=== PATIENT | female | born 1935 | race Caucasian/White ===

== ENCOUNTER → 2017-06-12 | Outpatient (CLI) | payer OTHER, MEDICARE | LOC: BHFA 14:00 | PROVIDERS: ATTEND Internal Medicine Cardiovascular Disease | DX: I35.9 Nonrheumatic aortic valve disorder, unspecified (principal) ==

== ENCOUNTER → 2018-02-20 | Outpatient (CLI) | payer OTHER, MEDICARE | LOC: BHFA 13:15 | PROVIDERS: ATTEND Internal Medicine Cardiovascular Disease | DX: I35.9 Nonrheumatic aortic valve disorder, unspecified (principal) ==

== ENCOUNTER → 2018-06-04 | Outpatient (CLI) | payer OTHER, MEDICARE | LOC: FIMAGING 15:27 | PROVIDERS: ATTEND Ophthalmology Retina Specialist | DX: H53.122 Transient visual loss, left eye (principal); G93.89 Other specified disorders of brain ==

== ENCOUNTER 2018-06-30 12:17 | Emergency (ER) | payer OTHER, MEDICARE ==
[2018-06-30] MEDS ORDERED: OXYMETAZOLINE 30 ML NASAL SPRAY ONE (12:45)
[2018-06-30] MEDS ORDERED: SILVER NITRATE APPLICATOR 1 APPL TP ONE (12:46)
[2018-06-30] MEDS ORDERED: COCAINE HCL 4% 4 ML BTL TP ONE (13:48)
--- NOTE | 2018-06-30 13:58 | EDPHY ---
H & P Stated Complaint: epistaxis today on blood thinners Time Seen by Provider: 06/30/18 13:31 HPI/ROS: CHIEF COMPLAINT: Epistaxis, anticoagulated HISTORY OF PRESENT ILLNESS: The patient presents the ED with complaints of epistaxis that began earlier today. She is chronically anticoagulated on warfarin. She had her INR checked several days ago and it was 2.1. The patient is also on chronic oxygen. The patient denies any lightheadedness, presyncope, chest pain or dyspnea. Patient denies history of nasal trauma. She denies additional acute complaints. REVIEW OF SYSTEMS: A comprehensive 10 point review of systems is otherwise negative aside from elements mentioned in the history of present illness. Source: Patient Exam Limitations: No limitations - Personal History Current Tetanus Diphtheria and Acellular Pertussis (TDAP): Yes Tetanus Vaccine Date: < 10 years - Medical/Surgical History Hx Asthma: No Hx Chronic Respiratory Disease: Yes Hx Diabetes: No Hx Cardiac Disease: Yes Hx Renal Disease: No Hx Cirrhosis: No Hx Alcoholism: No Hx HIV/AIDS: No Hx Splenectomy or Spleen Trauma: No Other PMH: 3CHF, CABG-aortic valve replacement, afib, HTN, pulmonary HTN, appy, kalli, hypothyroid,aflutter, ablation, angiogram,CHF,Chronic home o2 2L, chronic resp failure. morbid obesity - Social History Smoking Status: Never smoked - Physical Exam Exam: General Appearance: Obese female, no acute distress Eyes: Pupils equal and round no pallor or injection ENT, Mouth: Active bleeding from the left anterior nasal septum Respiratory: There are no retractions, lungs are clear to auscultation Cardiovascular: Regular rate and rhythm Gastrointestinal: Abdomen is soft and nontender, no masses, bowel sounds normal Neurological: 5/5 strength all 4 extremities Skin: Warm and dry, no rashes Musculoskeletal: Neck is supple nontender Extremities: symmetrical, full range of motion Constitutional: Initial Vital Signs Temperature (C) 36.7 C 06/30/18 12:27 Heart Rate 118 H 06/30/18 12:27 Respiratory Rate 19 06/30/18 12:27 Blood Pressure 162/104 H 06/30/18 12:27 O2 Sat (%) 92 06/30/18 12:27 O2 Delivery Mode Nasal Cannula O2 (L/minute) 5 Allergies/Adverse Reactions: Penicillins Allergy (Severe, Verified 06/30/18 12:25) Anaphylaxis Home Medications: Medication Instructions Recorded Thyroid,Pork [[place] Thyroid] 90 mg PO DAILY06 07/31/15 Aspirin EC [Aspirin EC 81 mg (*)] 81 mg PO HS 01/12/16 Cholecalciferol Vit D3 [Vitamin D3 4,000 units PO DAILY 03/16/16 (*)] Herbals/Supplements -Info Only 1 ea PO DAILY 03/16/16 Spironolactone [Aldactone 25 MG 25 mg PO DAILY #0 tab 03/24/16 (*)] Warfarin Sodium [Coumadin 2.5MG 2.5 mg PO DAILY16 #0 tab 03/24/16 (*)] Acetaminophen [Tylenol 325mg (*)] 650 mg PO Q4 PRN #0 tab 06/03/16 Amiodarone HCl [[place] (*)] 200 mg PO DAILY #0 tab 06/03/16 Carvedilol [Coreg (*)] 1.5625 mg PO BIDMEAL #0 tab 06/03/16 Ciprofloxacin [Cipro] 250 mg PO BID@1000,2000 #0 tab 06/03/16 Digoxin [Lanoxin 125 mcg (RX)] 125 mcg PO DAILY10 #0 tab 06/03/16 Famotidine [Pepcid 20 MG (*)] 10 mg PO BID #0 tab 06/03/16 Ferrous Sulfate [Ferrous Sulf 325 325 mg PO BID #0 tab 06/03/16 MG (*)] Nitroglycerin [Nitrostat 0.4 mg 0.4 mg SL PRN PRN #0 btl 06/03/16 (*)] Nystatin Powder [Mycostatin Powder] 1 ozzy TP TID #0 powder 06/03/16 Polyethylene Glycol 3350 [Miralax 17 gm PO DAILY PRN #0 pkt 06/03/16 17 gm (*)] Sennosides/Docusate Sodium 1 - 2 tab PO BID #0 tab 06/03/16 [Senokot-S] Torsemide [Demadex] 40 mg PO DAILY10 #0 tab 06/03/16 Medical Decision Making Procedures: Procedure: Epistaxis control. Indication: nosebleed not controlled by direct pressure. Risks, benefits, alternatives discussed with patient and consent obtained. The left nares was anesthetized with topical cocaine. The anterior epistaxis was identified. The patient was treated with silver nitrate cautery. Following the procedure the patient was re-examined and the bleeding was well controlled. The patient tolerated the procedure well. The procedure was performed by myself. ED Course/Re-evaluation: The patient presents the ED with bleeding from her left anterior septum. I was able to successfully cauterize this in the emergency department without evidence of recurrent rebleeding. The patient will be discharged from the emergency department with customary aftercare instructions. Patient did have an INR checked perform several days ago which demonstrated a therapeutic level. Differential Diagnosis: Differential diagnosis considered includes anterior epistaxis, posterior epistaxis Departure - Departure Disposition: Home, Routine, Self-Care Clinical Impression: Acute anterior epistaxis, Afib Condition: Good Instructions: Nosebleed (ED) Additional Instructions: 1. Please return to the emergency department for any bleeding not resolved with direct pressure. You can use 4 sprays of the Afrin into your nose if you have recurrent bleeding. Please be sure to blow all clots from her nose in the event of a recurrent bleed before using Afrin and applying pressure. 2. Please follow up with your primary care provider as needed. 3. You have been given the number of our on-call ENT physician, Dr. Celestino Field, if you continue to have mild intermittent bleeding. Referrals: Landon Ann PA [Primary Care Provider] - As per Instructions Celestino Field MD [Medical Doctor] - As per Instructions
[2018-06-30 14:51] VITALS: BP 155/79
== END 2018-06-30 14:51 | disposition home or self-care (01) ==
PROC: 095KXZZ Destruction of Nasal Mucosa and Soft Tissue, External Approach (ICD-10-PCS; principal; 2018-06-30)
DX: R04.0 Epistaxis (principal); I48.91 Unspecified atrial fibrillation; Z79.01 Long term (current) use of anticoagulants; Z99.81 Dependence on supplemental oxygen

== ENCOUNTER 2018-06-30 17:11 | Observation (INO) | payer OTHER, MEDICARE ==
--- NOTE | 2018-06-30 17:42 | EDPHY ---
H & P Stated Complaint: nosebleed, here earlier, not stopping Time Seen by Provider: 06/30/18 17:19 HPI/ROS: CHIEF COMPLAINT: Continued epistaxis HISTORY OF PRESENT ILLNESS: 82-year-old female history of warfarin anticoagulation secondary to history of atrial fibrillation, seen the ER earlier today for left-sided epistaxis with chemical cauterization at that time returns to the ER complaining of breakthrough bleeding. Last INR was 2.1 several days ago. She is also on chronic nasal cannula oxygen. Denies nasal trauma. Denies dizziness. Denies headache. Denies nausea or vomiting. PCP: ERIK Ann REVIEW OF SYSTEMS: A ten point review of systems was performed and is negative with the exception of the items mentioned in the HPI PAST MEDICAL & SURGICAL HISTORY: chronic Coumadin anticoagulation. CHF. CABG. Atrial fibrillation. Chronic oxygen-dependent via nasal cannula SOCIAL HISTORY:Nonsmoker PHYSICAL EXAM (Prior to examination, patient consented to physical exam, hands were washed and my usual and customary physical exam procedures followed) 1) GENERAL: Well-developed, well-nourished, alert and oriented. Appears to be in no acute distress. 2) HEAD: Normocephalic, atraumatic 3) HEENT: Pupils equal, round, reactive to light bilaterally. Sclera anicteric. Nasopharynx: Left nostril area of chemical cauterization noted with l breakthrough bleeding noted 4) NECK: Full range of motion, no meningeal signs. 5) LUNGS: Clear auscultation bilaterally, no wheezes, no rhonchi, no retractions. 6) HEART: Regular rate and rhythm, no murmur, no heave, no gallop. 7) ABDOMEN: No guarding, no rebound, no focal tenderness, 8) MUSCULOSKELETAL: No peripheral edema or discoloration. 9) BACK: No visual or palpable abnormality. 10) SKIN: No rash, no petechiae. 11) Psychiatric: Patient is oriented X 3, there is no agitation. DIFFERENTIAL DIAGNOSIS: In no particular order including but not limited to anterior epistaxis, posterior epistaxis,, supratherapeutic INR - Personal History Tetanus Vaccine Date: < 10 years - Medical/Surgical History Hx Asthma: No Hx Chronic Respiratory Disease: Yes Hx Diabetes: No Hx Cardiac Disease: Yes Hx Renal Disease: No Hx Cirrhosis: No Hx Alcoholism: No Hx HIV/AIDS: No Hx Splenectomy or Spleen Trauma: No Other PMH: 3CHF, CABG-aortic valve replacement, afib, HTN, pulmonary HTN, appy, kalli, hypothyroid,aflutter, ablation, angiogram,CHF,Chronic home o2, chronic resp failure. morbid obesity - Social History Smoking Status: Never smoked Constitutional: Initial Vital Signs Temperature (C) 36.6 C 06/30/18 17:12 Heart Rate 108 H 06/30/18 17:12 Respiratory Rate 18 06/30/18 17:12 Blood Pressure 124/95 H 06/30/18 17:12 O2 Sat (%) 91 L 06/30/18 17:12 O2 Delivery Mode Nasal Cannula O2 (L/minute) 4.5 Allergies/Adverse Reactions: Penicillins Allergy (Severe, Verified 06/30/18 17:11) Anaphylaxis ciprofloxacin Allergy (Verified 06/30/18 18:25) Unknown doxycycline Allergy (Verified 06/30/18 18:25) Unknown Quinolones Allergy (Verified 06/30/18 18:25) Unknown Home Medications: Medication Instructions Recorded Aspirin [Aspirin 81mg (*)] 81 mg PO HS 06/30/18 Carvedilol [Coreg (*)] 3.125 mg PO BIDMEAL 06/30/18 Cholecalciferol Vit D3 [Vitamin D3 5,000 units PO DAILY 06/30/18 (*)] Digoxin [Digitek] 125 mcg PO DAILY 06/30/18 Herbals/Supplements -Info Only 1 ea PO DAILY 06/30/18 Potassium Cl [Klor-Con 20 meq (*)] 20 meq PO 06/30/18 Spironolactone [Aldactone 25 MG 25 mg PO DAILY 06/30/18 (*)] Thyroid,Pork [[place] Thyroid] 105 mg PO DAILY 06/30/18 Torsemide [Demadex] 20 mg PO DAILY 06/30/18 Warfarin Sodium [Coumadin 2.5MG 2.5 mg PO MOTUWETHFRSA@06/30/18 (*)] Warfarin Sodium [Coumadin 2.5MG 3.75 mg PO RIVERA@16 06/30/18 (*)] Medical Decision Making Procedures: Procedure: Epistaxis control. Indication: nosebleed not controlled by direct pressure. Risks, benefits, alternatives discussed with patient and consent obtained. The left nares was packed with rapid rhino packing Following the procedure the patient was re-examined and the bleeding was well controlled. The patient tolerated the procedure well. The procedure was performed by myself. ED Course/Re-evaluation: 5:45 p.m.: Nasal packing placed at this time. Patient expresses her concerned about being discharged home as she lives by herself, unsure how to manage with her multiple medical comorbidities. I saw this patient independently based on established practice protocols. Care of patient under supervision of secondary supervising physician Dr Reyes with whom I discussed case. 5:51 p.m.: Phone consultation with Dr. Amanda Waters who will admit patient, observation. - Data Points Medications Given: Aspirin (Aspirin) 81 mg PO HS [facility] Stop: 12/27/18 20:59 Last Admin: 06/30/18 20:20 Dose: 81 mg Carvedilol (Coreg) 3.125 mg PO DAILY [facility] Stop: 12/27/18 21:14 Last Admin: 06/30/18 20:20 Dose: 3.125 mg Warfarin Sodium (Coumadin) 2.5 mg PO MOTUWETHFRSA@16 [facility] Stop: 12/27/18 21:08 Last Admin: 06/30/18 20:20 Dose: 2.5 mg Departure - Departure Disposition: [facility] Inpatient Acute Clinical Impression: Recurrent epistaxis
[2018-06-30 18:19] LABS: PLATELET COUNT 228 10^3/uL (150-400)
[2018-06-30 18:26] LABS: INR 2.31 (0.83-1.16); PROTIME(PATIENT) 25.4 SEC (12.0-15.0)
--- NOTE | 2018-06-30 18:58 | SOAPPROG ---
SOAP Progress Note Assessment/Plan: Assessment: Epistaxis: currently with nasal packing in place to achieve hemostasis. Etiology unclear as has used nasal canula oxygen for years. Atrial fibrillation: on coumadin, therapeutic INR. I am reluctant to hold both coumadin and aspirin due to her atrial fibrillation. Continue digoxin, coreg. Due for 2.5mg coumadin tonight. Check PT/INR in am. CBC normal. CHF: stable. Prefers to hold her diuretics tonight while she is in the hospital. Pulmonary hypertension: on continuous oxygen with stable SOB. Using a mask now to provide adequate flow, as she is not able to use nasal canula oxygen at present. Hopefully we can set her up with a mask tomorrow so that she can return home. Has concentrator at home. Hypothyroid: on replacement DVT prophylaxis: on coumadin Dispo: admit to observation Plan: 06/30/18 19:01 06/30/18 19:22 06/30/18 19:25 Subjective: 82 yo woman with multiple medical problems including atrial fibrillation on chronic anticoagulation, pulmonary htn, and CHF had the onset of marked epistaxis this morning at 10:20 am. Recent INR in the office 2.0. With the help of a neighbor, applied pressure but not able to get bleeding to stop by noon, so came to ED. Treated with compression for a couple of hours, and then cauterization. Shortly after returning home, bleeding resumed, albeit more slowly. She returned to ED and nasal packing placed. She still has some small amount of bleeding, and balloon tamponade is adjusted periodically. INR is 2.3. She is concerned about returning home with packing in place and not being able to get enough oxygen. She uses nasal canula oxygen continuously, at 4.5L/min, and doesn't feel she'll oxygenate adequately with packing in place. Here in the ED, she is wearing a face mask. She is being admitted for ongoing care. Objective: Vital Signs Temp Pulse Resp BP Pulse Ox 36.6 C 108 H 18 124/95 H 91 L 06/30/18 17:12 06/30/18 17:12 06/30/18 17:12 06/30/18 17:12 06/30/18 17:12 PT 25.4 SEC (12.0-15.0) H 06/30/18 17:50 INR 2.31 (0.83-1.16) H 06/30/18 17:50 General: obese woman, cheerful, NAD HEENT: NC/AT. PERRL, EOMI. Nasal pack in place in L nostril. Slight bloody seepage noted Neck: no masses, adenopathy Lungs: clear bilaterally CV: irregularly irregular, no murmur noted Abdomen: + bowel sounds, soft, NT. No hepatosplenomegaly, masses noted Extremities: bilateral pitting edema, stable per pt Neurologic: alert, oriented, John Psychiatric: pleasant, no confusion, agitation ICD10 Worksheet Patient Problems: Problems Problem Status Onset Acute anterior epistaxis Acute Afib Acute Atrial flutter Acute Chronic Disease Mgmt/Transitional Care Acute Congestive heart failure Acute Heart failure Acute
[2018-06-30] MEDS ORDERED: ONDANSETRON 4 MG/2 ML VIAL IVP PRN (19:07)
[2018-06-30] MEDS ORDERED: ACETAMINOPHEN 325 MG TAB PO PRN (19:07)
[2018-06-30] MEDS ORDERED: ONDANSETRON DISINTEGRATING 4 MG TAB PO PRN (19:07)
--- NOTE | 2018-06-30 19:48 | GHP ---
[f rep st] HISTORY AND PHYSICAL DATE OF ADMISSION: 06/30/2018 HISTORY OF PRESENT ILLNESS: The patient is an 82-year-old woman with a history of multiple medical problems including atrial fibrillation on chronic anticoagulation, pulmonary hypertension, and chronic congestive heart failure, who had the onset of marked epistaxis this morning at 10:20. She had a recent INR in the office which was 2.0. With the help of a neighbor, she applied pressure, but was not able to get the bleeding stopped by noon, so she came into the emergency department. She was treated with compression for a couple of hours without success and then cauterization. After 3 cauterization attempts , hemostasis was obtained. Shortly after returning home, her bleeding resumed, albeit more slowly. She returned to the emergency department and nasal packing was placed. At this point she still has a small amount of bleeding and balloon tamponade is adjusted periodically. Her INR is 2.3. She is concerned about returning home with the packing in place as she is worried that she will not be able to get adequate oxygen. She uses nasal cannula oxygen continuously at 4.5 L/minute and does not feel she will be able to oxygenate adequately with the packing in place. Here in the emergency department she is wearing a face mask. She is being admitted for ongoing care. PAST MEDICAL HISTORY: Atrial fibrillation, aortic stenosis, hypothyroidism, pulmonary artery hypertension, meningioma, recurrent urinary tract infection, congestive heart failure, morbid obesity. MEDICATIONS: Digoxin 125 mcg daily, Aldactone 25 mg daily, [place] Thyroid 105 mg daily, Demadex 20 mg daily, potassium 20 mEq daily. Coumadin 2.5 mg 6 days per week, 3.75 mg 1 day per week. Aspirin 81 mg daily, Coreg 3.125 mg in the evening, [id number], DHA, vitamin D, coenzyme Q10. ALLERGIES: Penicillin, Eliquis, lidocaine, and ciprofloxacin. SURGICAL HISTORY: Aortic valve replacement, cholecystectomy, appendectomy, hysterectomy. FAMILY HISTORY: Noncontributory. SOCIAL HISTORY: She is a nonsmoker. She lives alone. REVIEW OF SYSTEMS: GENERAL: No fever or chills. She is chronically fatigued. HEENT: No recent sinus congestion or pressure, sore throat, or rhinitis. RESPIRATORY: No cough. She has chronic shortness of breath which is unchanged. No pleuritic chest pain. She is on chronic oxygen of 4.5 L/minute. CARDIOVASCULAR: No chest pain or pressure. Chronic atrial fibrillation. GI : Complaining of nausea currently, though this is not usual for her. No vomiting, constipation, or diarrhea. No heartburn. No abdominal pain. : No dysuria or hematuria. NEUROLOGIC: Currently has a headache, but again this is uncommon for her. No numbness, weakness, tingling. She has some difficulty walking, but this is unchanged from usual. PSYCHIATRIC: No concerns. No depression or anxiety. PHYSICAL EXAMINATION: VITAL SIGNS: Temperature 36.6, pulse 108, respirations 18, blood pressure 124/95, O2 saturation 91%. GENERAL: She is an obese woman, cheerful. In no acute distress. HEENT: Normocephalic, atraumatic. Pupils are equal, round, reactive to light. Extraocular movements are intact. The nasal packing is in place in the left nostril. Slightly bloody seepage is noted. NECK: No masses or adenopathy. LUNGS: Clear bilaterally. CARDIOVASCULAR: Irregularly irregular. No murmur is noted. ABDOMEN: Soft with normal bowel sounds. Nontender. No hepatosplenomegaly or masses noted. EXTREMITIES: Bilateral pitting edema, stable per patient. NEUROLOGIC: She is alert and oriented. Moving all extremities. PSYCHIATRIC: Pleasant. No confusion or agitation. ASSESSMENT AND PLAN: 1. Epistaxis: Currently she has nasal packing in place to achieve hemostasis. Etiology unclear. She has used nasal cannula oxygen for years without incident. 2. Atrial fibrillation, on Coumadin with therapeutic INR: I am reluctant to hold both Coumadin and aspirin due to her atrial fibrillation. I will continue digoxin and Coreg. Due for 2.5 mg Coumadin tonight. We will continue to follow INR. 3. Congestive heart failure, stable: She prefers to hold her diuretics tonight while she is in the hospital. 4. Pulmonary hypertension, on continuous oxygen with stable shortness of breath : Using a mask now to provide adequate flow as she is not able to use nasal cannula oxygen at present. Hopefully, she can be set up with a mask tomorrow so that she may return home. She does have a concentrator at home. 5. Hypothyroidism: On replacement. 6. DVT prophylaxis: On Coumadin. 7. Disposition: Admit to observation. /[id number]/MODL MTDD
[2018-06-30] MEDS: CARVEDILOL 3.125 MG TAB PO SCH (20:20)
[2018-06-30] MEDS ORDERED: ASPIRIN 81 MG CHEWABLE TAB PO SCH (21:00)
[2018-06-30] MEDS ORDERED: WARFARIN SODIUM 2.5 MG TAB PO SCH (21:09)
[2018-07-01 05:33] LABS: INR 2.25 (0.83-1.16); PROTIME(PATIENT) 24.9 SEC (12.0-15.0)
[2018-07-01] MEDS ORDERED: DIGOXIN 125 MCG TAB PO SCH (09:00)
[2018-07-01] MEDS ORDERED: THYROID PORK PO SCH (09:00)
[2018-07-01] MEDS ORDERED: CHOLECALCIFEROL VIT D3 1,000 UNITS TAB PO SCH (09:00)
[2018-07-01] MEDS: CARVEDILOL 3.125 MG TAB PO SCH (10:24)
[2018-07-01] MEDS ORDERED: HYDROCODONE/APAP 5/325 TAB PO PRN (10:25)
[2018-07-01 11:43] VITALS: BP 171/95
--- NOTE | 2018-07-01 13:35 | SOAPPROG ---
SOAP Progress Note Assessment/Plan: Assessment: 82 yo female admitted for ongoing epistaxis - initially treated in ER w/ cautery but returned later in day w/ more bleeding and packed w/ nasal tampon, was struggling w/ breathing w/ nasal cannula and admitted w/ face mask oxygen and monitoring of sat's. Was fine overnight, -d/c home w/ face mask delivery for oxygen -will call ENT to discuss f/u and removal of nasal tampon and further instructions. f/u in clinic w/ pcp tomorrow Plan: 07/01/18 13:31 Subjective: doing ok, didn't sleep well, c/o clear drainage from R nostril, L w/ packing, pain from from the packing and would like something for the pain. Usually intolerant of pain meds and only wants minimal to get through the next 1-2 days. Objective: Vital Signs Temp Pulse Resp BP Pulse Ox 36.3 C 110 H 16 171/95 H 99 07/01/18 11:42 07/01/18 11:42 07/01/18 11:42 07/01/18 11:42 07/01/18 11:42 06/30/18 07/01/18 07/02/18 05:59 05:59 05:59 Intake Total 900 Balance 900 PT 24.9 SEC (12.0-15.0) H 07/01/18 04:35 INR 2.25 (0.83-1.16) H 07/01/18 04:35 GEn: pleasant A&O Heent: nasal packing L nares, R w/ clear d/c Chest: cta CV: irreg irreg - Pending Discharge Pending Discharge Within 24 Hours: Yes Pending Discharge Date: 07/02/18 Pending Discharge Time: 11:00 ICD10 Worksheet Patient Problems: Problems Problem Status Onset Afib Acute Atrial flutter Acute Chronic Disease Mgmt/Transitional Care Acute Congestive heart failure Acute Heart failure Acute Recurrent epistaxis Acute
--- NOTE | 2018-07-01 14:36 | GDS ---
[f rep st] DISCHARGE SUMMARY HOSPITAL COURSE: The patient is a pleasant 82-year-old female with a history of anticoagulation, secondary to atrial fibrillation and status post TAVR who had presented to the ER initially yesterday with left-sided epistaxis and was treated with cauterization and was sent home. Unfortunately, the bleeding started again when she went home. She returned back to the ER and was seen and treated with nasal packing. She is on oxygen at night and wearing a nasal cannula became problematic. She was admitted with a facemask for oxygen overnight with a plan to monitor saturations on this to ensure safety at home. Overnight, she did well. Saturations stayed in the 90s without any problems. She was having some clear discharge from her right knee. Otherwise, discomfort from the packing in her left naris at times quite severe discomfort. ENT, Dr. Field was consulted today who would like the patient to keep her packing in for 4-5 days. He would like her to follow up in clinic on Monday this week, which would be July 04. He would like her to hold her Coumadin if possible. I discussed this with her PCP, Landon Ann, who is okay with this short term, even though she is at high risk, her bleeding risk is outweighing this, and Dr. Field would also like her on Keflex for prophylaxis, prevention of sinusitis and rare possibility of toxic shock syndrome. The Keflex was sent in to [facility] 500 mg po tid x 5d. Additionally, the patient asked for pain medication to help with the discomfort and she was given a prescription for Vicodin 5/325 mg 1 p.o. q.4 hours p.r.n. for pain #15, no refills, and she will call the clinic. If she has any questions or concerns in the interim. Otherwise, she will follow up with ENT in 3 more days and hold her Coumadin until then. /[id number]/MODL MTDD
--- NOTE | 2018-07-01 15:02 | ASMTLACE ---
JAME Length of stay for Answers: 1 day current admission Acuity / Level of Answers: No Care: Did the patient have an inpatient admission? Comorbidities - select Answers: Congestive heart failure all that apply Other Notes: Afib, aortic stenosis, HTN, obesity # of Emergency department Answers: 1-2 visits in the last 6 months Score: 5 Date Signed: 07/01/2018 03:02 PM Electronically Signed By:Katt Cabrera RN
--- NOTE | 2018-07-01 15:08 | ASDISCHSUM ---
Discharge Information Plan Status:Home with No Needs Medically Cleared to Leave:07/01/2018 Discharge Date:07/01/2018 01:21 PM CM D/C Disposition:Home, Routine, Self-Care ADT D/C Disposition:[id number] Projected Discharge Date:07/01/2018 01:21 PM Transportation at D/C:Family Discharge Delay Reason: Follow-Up Date:07/01/2018 01:21 PM Discharge Slot:2 - 12:01 pm - 18:00 pm Final Diagnosis:Recurrent epistaxis, anticoagulation for afib, s/p TAVR, Placement Information Patient Contact Information Contact Name:TUCKER Relationship:Friend Address: Work Phone: City: [facility] Phone: [facility]/[employer] bio Code: Email: Financial Information Financial Class:Medicare Primary Plan Desc:MEDICARE OUTPATIENT Primary Plan Number:[id number] Secondary Plan Desc:[place] SUPPLEMENT Secondary Plan Number:[id number] Assessment Information LACE LACE Length of stay for Answers: 1 day current admission Acuity / Level of Answers: No Care: Did the patient have an inpatient admission? Comorbidities - select Answers: Congestive heart failure all that apply Other Notes: Afib, aortic stenosis, HTN, obesity # of Emergency department Answers: 1-2 visits in the last 6 months Score: 5 Date Signed: 07/01/2018 03:02 PM Electronically Signed By:Katt Cabrera RN [facility] Progress Note CM Note CM Note Notes: Reviewed chart regarding discharge plan of care, pt's progress. Pt admitted for recurrent epistaxis secondary to anticoagulation for afib and a recent TAVR. History includes CHF, obesity, pulmonary artery HTN. Pt lives alone. Per EARLINE Payne pt to discharge home independently with no identified needs. Met with pt - pt concurs she does not have any needs. LIM form signed, placed in chart. No IM signed, hospitalization < 48 hrs. Pt to follow up as directed. CM available for any further issues or concerns. Discharge Plan: Home independently Date Signed: 07/01/2018 03:07 PM Electronically Signed By:Katt Cabrera RN Intervention Information Intervention Type:*LIM-Signed Date of Service:07/01/2018 02:59 PM Patient Type:Observation Staff Member:EARLINE Cabrera, Katt Hours: Discipline: Severity: Comment:
[2018-07-01] MEDS ORDERED: WARFARIN SODIUM 2.5 MG TAB PO SCH (16:00)
== END 2018-07-01 13:21 | disposition home health service (06) ==
LOC: F3N 19:44
PROVIDERS: ADMIT Internal Medicine; ATTEND Internal Medicine
DX: R04.0 Epistaxis (principal); I48.91 Unspecified atrial fibrillation; I11.0 Hypertensive heart disease with heart failure; I50.9 Heart failure, unspecified; I27.20 Pulmonary hypertension, unspecified; Z79.01 Long term (current) use of anticoagulants; E03.9 Hypothyroidism, unspecified; E66.01 Morbid (severe) obesity due to excess calories; Z99.81 Dependence on supplemental oxygen; Z95.1 Presence of aortocoronary bypass graft; Z87.440 Personal history of urinary (tract) infections; Z68.41 Body mass index [BMI] 40.0-44.9, adult
CPT/HCPCS: 99285; G0378

== ENCOUNTER → 2018-10-18 | Outpatient (CLI) | payer OTHER, MEDICARE | LOC: BHFA 13:15 | PROVIDERS: ATTEND Internal Medicine Cardiovascular Disease | DX: Z95.2 Presence of prosthetic heart valve (principal) ==

== ENCOUNTER → 2018-11-29 | Outpatient (CLI) | payer OTHER, MEDICARE | LOC: FLAB 14:54 | PROVIDERS: ATTEND Internal Medicine Pulmonary Disease | DX: J96.11 Chronic respiratory failure with hypoxia (principal); J84.10 Pulmonary fibrosis, unspecified; Z95.4 Presence of other heart-valve replacement ==